=== PATIENT | female | born 1965 | race Caucasian/White ===

== ENCOUNTER 2024-09-22 07:50 | Inpatient (IN) ==
[2024-09-22] MEDS: methylPREDNISolone SOD SUCC 125 MG/2 ML VIAL IV ONE (08:41)
[2024-09-22 08:49] LABS: Basophils # (Auto) 0.03 K/mcL (0.00-0.30); Basophils % (Auto) 0.2 % (0.0-2.0); Eosinophils # (Auto) 1.21 K/mcL (0.00-0.70); Eosinophils % (Auto) 7.9 % (0.0-7.0); Hematocrit 40.8 % (34.1-44.9); Hemoglobin 12.9 g/dL (11.2-15.7); Lymphocytes % (Auto) 7.2 % (15.5-49.0); Mean Cell Volume 92.7 fL (80.0-100.0); Mean Corpuscular HGB Conc 31.6 g/dL (31.0-36.0); Mean Platelet Volume 10.1 fL (8.8-12.5); Monocytes # (Auto) 1.01 K/mcL (0.10-0.90); Monocytes % (Auto) 6.6 % (1.0-12.0); Neutrophils % (Auto) 77.8 % (38.0-78.0); Platelet Count 361 K/mcL (140-440); Red Cell Distribution Width 13.1 % (11.5-14.5); WBC 15.3 K/mcL (4.5-11.0)
[2024-09-22] MEDS: IPRATROPIUM/ALBUTEROL 3 ML AMPUL.NEB NEB ONE (09:05)
[2024-09-22 09:13] LABS: ALT/SGPT 39 U/L (<40); AST/SGOT 40 U/L (<32); Albumin 3.9 gm/dL (3.2-5.2); Albumin/Globulin Ratio 1.2 (1.0-2.3); Alkaline Phosphatase 169 U/L (39-117); Bilirubin,Total 0.5 mg/dL (0.1-1.0); Blood Urea Nitrogen 9 mg/dL (6-20); Calcium 8.7 mg/dL (8.6-10.4); Carbon Dioxide 25 mmol/L (22-30); Chloride 99 mmol/L (96-108); Globulin 3.2 gm/dL (2.2-3.7); Glomerular Filtration Rate 99; Glucose 120 mg/dL (70-105); Potassium 3.4 mmol/L (3.3-5.1); Sodium 138 mmol/L (133-145)
[2024-09-22] MEDS: KETOROLAC 15 MG/ML VIAL IV ONE (10:50)
[2024-09-22] MEDS: LEVOFLOXACIN 750 MG/150 ML BAG IV ONE (11:38)
[2024-09-22] MEDS ORDERED: ONDANSETRON 4 MG/2 ML VIAL IV PRN (13:16)
[2024-09-22] MEDS ORDERED: traZODone HCL 50 MG TABLET PO PRN (13:16)
[2024-09-22] MEDS: 0.9 % SODIUM CHLORIDE 10 ML SYRINGE IV SCH (14:15)
[2024-09-22] MEDS: IPRATROPIUM/ALBUTEROL 3 ML AMPUL.NEB NEB SCH (14:50)
[2024-09-22] MEDS: POTASSIUM CHLORIDE 20 MEQ TABLET PO SCH (17:33)
[2024-09-22] MEDS: methylPREDNISolone SOD SUCC 40 MG/ML VIAL IV SCH (20:47)
[2024-09-22] MEDS: MYCOPHENOLATE 250 MG CAPSULE PO SCH (20:48)
[2024-09-22] MEDS: LOSARTAN 50 MG TABLET PO SCH (20:48)
[2024-09-22] MEDS: DOCUSATE SODIUM 100 MG CAPSULE PO SCH (20:48)
[2024-09-22] MEDS: SERTRALINE 100 MG TABLET PO SCH (20:48)
[2024-09-22] MEDS: ATORVASTATIN 20 MG TABLET PO SCH (20:49)
[2024-09-22] MEDS: SENNOSIDES 1 TABLET PO SCH (20:50)
[2024-09-22] MEDS ORDERED: AMITRIPTYLINE 25 MG TABLET PO PRN (21:00)
[2024-09-22] MEDS: ZOLPIDEM 5 MG TABLET PO PRN (23:20)
[2024-09-22] MEDS: guaiFENesin/DEXTROMETHORPHAN 5ML UD CUP PO PRN (23:37)
[2024-09-22] MEDS: ACETAMINOPHEN 325 MG TABLET PO PRN (23:38)
[2024-09-23 06:34] LABS: Basophils # (Auto) 0.01 K/mcL (0.00-0.30); Basophils % (Auto) 0.1 % (0.0-2.0); Eosinophils # (Auto) 0 K/mcL (0.00-0.70); Eosinophils % (Auto) 0 % (0.0-7.0); Hematocrit 37.7 % (34.1-44.9); Hemoglobin 11.8 g/dL (11.2-15.7); Lymphocytes # (Auto) 0.58 K/mcL (1.50-4.80); Lymphocytes % (Auto) 3.9 % (15.5-49.0); Mean Cell Volume 94.7 fL (80.0-100.0); Mean Corpuscular HGB Conc 31.3 g/dL (31.0-36.0); Mean Platelet Volume 9.9 fL (8.8-12.5); Monocytes # (Auto) 0.72 K/mcL (0.10-0.90); Monocytes % (Auto) 4.8 % (1.0-12.0); Neutrophils % (Auto) 90.9 % (38.0-78.0); Platelet Count 319 K/mcL (140-440); RBC 3.98 M/mcL (3.59-5.38); Red Cell Distribution Width 13.2 % (11.5-14.5)
[2024-09-23 06:44] LABS: ALT/SGPT 34 U/L (<40); AST/SGOT 27 U/L (<32); Albumin 3.7 gm/dL (3.2-5.2); Albumin/Globulin Ratio 1.3 (1.0-2.3); Alkaline Phosphatase 160 U/L (39-117); Bilirubin,Total 0.3 mg/dL (0.1-1.0); Blood Urea Nitrogen 9 mg/dL (6-20); Calcium 8.9 mg/dL (8.6-10.4); Carbon Dioxide 27 mmol/L (22-30); Chloride 101 mmol/L (96-108); Globulin 2.9 gm/dL (2.2-3.7); Glomerular Filtration Rate 99; Glucose 155 mg/dL (70-105); Potassium 4.5 mmol/L (3.3-5.1); Sodium 139 mmol/L (133-145)
[2024-09-23] MEDS: LEVOTHYROXINE 150 MCG TABLET PO SCH (07:20)
[2024-09-23] MEDS: PANTOPRAZOLE 40 MG TABLET PO SCH (07:20)
[2024-09-23] MEDS: ENOXAPARIN 40 MG/0.4 ML SYRINGE SQ SCH (09:55)
[2024-09-23] MEDS: amLODIPine 10 MG TABLET PO SCH (09:55)
[2024-09-23] MEDS: LEVOFLOXACIN 750 MG/150 ML BAG IV SCH (09:58)
[2024-09-24 07:08] LABS: Basophils # (Auto) 0.01 K/mcL (0.00-0.30); Basophils % (Auto) 0.1 % (0.0-2.0); Eosinophils # (Auto) 0.01 K/mcL (0.00-0.70); Eosinophils % (Auto) 0.1 % (0.0-7.0); Hematocrit 40.1 % (34.1-44.9); Hemoglobin 12.4 g/dL (11.2-15.7); Lymphocytes # (Auto) 0.74 K/mcL (1.50-4.80); Mean Cell Volume 94.8 fL (80.0-100.0); Mean Corpuscular HGB Conc 30.9 g/dL (31.0-36.0); Mean Platelet Volume 9.6 fL (8.8-12.5); Monocytes # (Auto) 1.03 K/mcL (0.10-0.90); Monocytes % (Auto) 6.9 % (1.0-12.0); Neutrophils % (Auto) 87.6 % (38.0-78.0); Platelet Count 361 K/mcL (140-440); RBC 4.23 M/mcL (3.59-5.38); Red Cell Distribution Width 13.3 % (11.5-14.5); WBC 14.9 K/mcL (4.5-11.0)
[2024-09-24 07:53] LABS: ALT/SGPT 50 U/L (<40); AST/SGOT 48 U/L (<32); Albumin 3.9 gm/dL (3.2-5.2); Albumin/Globulin Ratio 1.3 (1.0-2.3); Alkaline Phosphatase 189 U/L (39-117); Bilirubin,Total 0.3 mg/dL (0.1-1.0); Blood Urea Nitrogen 10 mg/dL (6-20); Calcium 9.1 mg/dL (8.6-10.4); Carbon Dioxide 26 mmol/L (22-30); Chloride 99 mmol/L (96-108); Globulin 3.1 gm/dL (2.2-3.7); Glomerular Filtration Rate 99; Glucose 128 mg/dL (70-105); Potassium 4.5 mmol/L (3.3-5.1); Sodium 138 mmol/L (133-145)
[2024-09-24] MEDS: LOPERAMIDE 2 MG CAPSULE PO PRN (10:42)
[2024-09-24] MEDS: FUROSEMIDE 20 MG/2 ML VIAL IV SCH (10:42)
[2024-09-24] MEDS ORDERED: SENNOSIDES 1 TABLET PO PRN (13:31)
[2024-09-24] MEDS ORDERED: DOCUSATE SODIUM 100 MG CAPSULE PO PRN (13:31)
[2024-09-24] MEDS: LIDOCAINE 5 GM CREAM.TOP TOPICAL SCH (17:56)
[2024-09-24] MEDS: LACTOBACILLUS 1 CAPSULE PO SCH (21:41)
[2024-09-25 06:04] LABS: Basophils # (Auto) 0.01 K/mcL (0.00-0.30); Basophils % (Auto) 0.1 % (0.0-2.0); Eosinophils # (Auto) 0 K/mcL (0.00-0.70); Eosinophils % (Auto) 0 % (0.0-7.0); Hematocrit 39.4 % (34.1-44.9); Hemoglobin 12.1 g/dL (11.2-15.7); Lymphocytes # (Auto) 0.39 K/mcL (1.50-4.80); Lymphocytes % (Auto) 2.9 % (15.5-49.0); Mean Cell Volume 94.7 fL (80.0-100.0); Mean Corpuscular HGB Conc 30.7 g/dL (31.0-36.0); Mean Platelet Volume 9.8 fL (8.8-12.5); Monocytes # (Auto) 0.48 K/mcL (0.10-0.90); Monocytes % (Auto) 3.6 % (1.0-12.0); Neutrophils % (Auto) 93.1 % (38.0-78.0); Platelet Count 326 K/mcL (140-440); RBC 4.16 M/mcL (3.59-5.38); Red Cell Distribution Width 13.2 % (11.5-14.5); WBC 13.4 K/mcL (4.5-11.0)
[2024-09-25 06:53] LABS: ALT/SGPT 45 U/L (<40); AST/SGOT 25 U/L (<32); Albumin 3.5 gm/dL (3.2-5.2); Alkaline Phosphatase 183 U/L (39-117); Bilirubin,Total 0.3 mg/dL (0.1-1.0); Blood Urea Nitrogen 10 mg/dL (6-20); Calcium 9.2 mg/dL (8.6-10.4); Carbon Dioxide 28 mmol/L (22-30); Chloride 98 mmol/L (96-108); Globulin 3.4 gm/dL (2.2-3.7); Glomerular Filtration Rate 99; Glucose 186 mg/dL (70-105); Potassium 4.6 mmol/L (3.3-5.1); Sodium 138 mmol/L (133-145)
[2024-09-25] MEDS: FUROSEMIDE 20 MG/2 ML VIAL IV ONE (10:53)
[2024-09-26 06:19] LABS: Basophils # (Auto) 0.01 K/mcL (0.00-0.30); Basophils % (Auto) 0.1 % (0.0-2.0); Eosinophils # (Auto) 0 K/mcL (0.00-0.70); Eosinophils % (Auto) 0 % (0.0-7.0); Hematocrit 38.9 % (34.1-44.9); Hemoglobin 12.1 g/dL (11.2-15.7); Lymphocytes # (Auto) 0.58 K/mcL (1.50-4.80); Lymphocytes % (Auto) 4.1 % (15.5-49.0); Mean Cell Volume 94.6 fL (80.0-100.0); Mean Corpuscular HGB Conc 31.1 g/dL (31.0-36.0); Monocytes # (Auto) 0.76 K/mcL (0.10-0.90); Monocytes % (Auto) 5.4 % (1.0-12.0); Neutrophils % (Auto) 90.1 % (38.0-78.0); Platelet Count 380 K/mcL (140-440); RBC 4.11 M/mcL (3.59-5.38); Red Cell Distribution Width 13.1 % (11.5-14.5)
[2024-09-26 07:04] LABS: ALT/SGPT 44 U/L (<40); AST/SGOT 25 U/L (<32); Albumin 3.5 gm/dL (3.2-5.2); Alkaline Phosphatase 183 U/L (39-117); Bilirubin,Total 0.3 mg/dL (0.1-1.0); Blood Urea Nitrogen 16 mg/dL (6-20); Calcium 9.3 mg/dL (8.6-10.4); Carbon Dioxide 27 mmol/L (22-30); Chloride 98 mmol/L (96-108); Globulin 3.5 gm/dL (2.2-3.7); Glomerular Filtration Rate 99; Glucose 171 mg/dL (70-105); Potassium 4.7 mmol/L (3.3-5.1); Sodium 139 mmol/L (133-145)
[2024-09-26] MEDS: FLUTICASONE PROPIONATE SPRAY.NAS NS SCH (10:51)
[2024-09-26] MEDS: MEROPENEM 0.5 GM in 0.9 % SODIUM CHLORIDE 50 ML IV SCH (12:31)
[2024-09-26] MEDS: BUDESONIDE 0.5 MG/2 ML AMPUL.NEB NEB SCH (13:47)
[2024-09-26] MEDS: IPRATROPIUM/ALBUTEROL 3 ML AMPUL.NEB NEB SCH (19:11)
[2024-09-27 06:42] LABS: ALT/SGPT 40 U/L (<40); AST/SGOT 21 U/L (<32); Albumin 3.5 gm/dL (3.2-5.2); Alkaline Phosphatase 172 U/L (39-117); Bilirubin,Direct < 0.2 mg/dL (0-0.3); Bilirubin,Total 0.3 mg/dL (0.1-1.0); Blood Urea Nitrogen 15 mg/dL (6-20); Calcium 8.9 mg/dL (8.6-10.4); Carbon Dioxide 29 mmol/L (22-30); Chloride 97 mmol/L (96-108); Globulin 3.4 gm/dL (2.2-3.7); Glomerular Filtration Rate 105; Glucose 135 mg/dL (70-105); Lactate Dehydrogenase 365 U/L (135-225); Potassium 4.5 mmol/L (3.3-5.1); Sodium 137 mmol/L (133-145); Triglycerides 101 mg/dL (<150); Uric Acid 2.4 mg/dL (2.5-8.0)
[2024-09-27 06:46] LABS: Basophils # (Auto) 0.01 K/mcL (0.00-0.30); Basophils % (Auto) 0.1 % (0.0-2.0); Eosinophils # (Auto) 0.01 K/mcL (0.00-0.70); Eosinophils % (Auto) 0.1 % (0.0-7.0); Hematocrit 40.3 % (34.1-44.9); Hemoglobin 12.6 g/dL (11.2-15.7); Lymphocytes # (Auto) 0.74 K/mcL (1.50-4.80); Lymphocytes % (Auto) 5.9 % (15.5-49.0); Mean Cell Volume 93.3 fL (80.0-100.0); Mean Corpuscular HGB Conc 31.3 g/dL (31.0-36.0); Monocytes # (Auto) 0.81 K/mcL (0.10-0.90); Monocytes % (Auto) 6.5 % (1.0-12.0); Neutrophils % (Auto) 86.9 % (38.0-78.0); Platelet Count 401 K/mcL (140-440); RBC 4.32 M/mcL (3.59-5.38); Red Cell Distribution Width 12.9 % (11.5-14.5); WBC 12.5 K/mcL (4.5-11.0)
[2024-09-27] MEDS: FUROSEMIDE 100 MG/10 ML VIAL IV ONE (08:11)
[2024-09-27] MEDS: predniSONE 20 MG TABLET PO SCH (09:01)
[2024-09-27] MEDS: FUROSEMIDE 40 MG/4 ML VIAL IV ONE (15:16)
[2024-09-27] MEDS: IPRATROPIUM/ALBUTEROL 3 ML AMPUL.NEB NEB PRN (19:14)
[2024-09-27 20:04] LABS: C-Reactive Protein 8.45 mg/dL (0.03-0.80)
[2024-09-27] MEDS: ENOXAPARIN 40 MG/0.4 ML SYRINGE SQ SCH (21:11)
[2024-09-28 06:35] LABS: Basophils # (Auto) 0.01 K/mcL (0.00-0.30); Basophils % (Auto) 0.1 % (0.0-2.0); Eosinophils # (Auto) 0.01 K/mcL (0.00-0.70); Eosinophils % (Auto) 0.1 % (0.0-7.0); Hematocrit 42.3 % (34.1-44.9); Hemoglobin 13.1 g/dL (11.2-15.7); Lymphocytes # (Auto) 0.85 K/mcL (1.50-4.80); Lymphocytes % (Auto) 6.1 % (15.5-49.0); Mean Platelet Volume 9.8 fL (8.8-12.5); Monocytes # (Auto) 0.76 K/mcL (0.10-0.90); Monocytes % (Auto) 5.5 % (1.0-12.0); Neutrophils % (Auto) 87.6 % (38.0-78.0); Platelet Count 414 K/mcL (140-440); RBC 4.55 M/mcL (3.59-5.38); Red Cell Distribution Width 12.9 % (11.5-14.5); WBC 13.9 K/mcL (4.5-11.0)
[2024-09-28 06:51] LABS: ALT/SGPT 36 U/L (<40); AST/SGOT 19 U/L (<32); Albumin 3.4 gm/dL (3.2-5.2); Albumin/Globulin Ratio 0.9 (1.0-2.3); Alkaline Phosphatase 165 U/L (39-117); Bilirubin,Direct < 0.2 mg/dL (0-0.3); Bilirubin,Total 0.3 mg/dL (0.1-1.0); Blood Urea Nitrogen 22 mg/dL (6-20); C-Reactive Protein 6.94 mg/dL (0.03-0.80); Calcium 9.1 mg/dL (8.6-10.4); Carbon Dioxide 28 mmol/L (22-30); Chloride 96 mmol/L (96-108); Globulin 3.6 gm/dL (2.2-3.7); Glomerular Filtration Rate 99; Glucose 135 mg/dL (70-105); Lactate Dehydrogenase 339 U/L (135-225); Phosphorous 3.9 mg/dL (2.5-4.5); Potassium 4.3 mmol/L (3.3-5.1); Sodium 136 mmol/L (133-145); Triglycerides 132 mg/dL (<150); Uric Acid 3.2 mg/dL (2.5-8.0)
[2024-09-28 08:31] LABS: Lymphocytes % 11 % (15-49); Monocytes % (Manual) 4 % (1-12); Platelet Estimate NORMAL (Normal); RBC Morphology NORMAL (Normal); Segmented Neutrophils % 85 % (38-78)
[2024-09-28] MEDS: guaiFENesin 600 MG TAB.SR.12H PO SCH (08:52)
[2024-09-28] MEDS: FUROSEMIDE 100 MG/10 ML VIAL IV SCH (10:00)
[2024-09-28] MEDS: LORazepam 1 MG TABLET PO PRN (20:21)
[2024-09-29 05:57] LABS: Basophils # (Auto) 0.01 K/mcL (0.00-0.30); Basophils % (Auto) 0.1 % (0.0-2.0); Eosinophils # (Auto) 0.01 K/mcL (0.00-0.70); Eosinophils % (Auto) 0.1 % (0.0-7.0); Hematocrit 42.8 % (34.1-44.9); Hemoglobin 13.4 g/dL (11.2-15.7); Lymphocytes # (Auto) 0.85 K/mcL (1.50-4.80); Lymphocytes % (Auto) 5.3 % (15.5-49.0); Mean Cell Volume 92.6 fL (80.0-100.0); Mean Corpuscular HGB Conc 31.3 g/dL (31.0-36.0); Mean Platelet Volume 9.8 fL (8.8-12.5); Monocytes # (Auto) 0.63 K/mcL (0.10-0.90); Monocytes % (Auto) 3.9 % (1.0-12.0); Neutrophils % (Auto) 89.9 % (38.0-78.0); Platelet Count 461 K/mcL (140-440); RBC 4.62 M/mcL (3.59-5.38); WBC 16.1 K/mcL (4.5-11.0)
[2024-09-29 06:43] LABS: ALT/SGPT 35 U/L (<40); AST/SGOT 23 U/L (<32); Albumin 3.5 gm/dL (3.2-5.2); Albumin/Globulin Ratio 1.1 (1.0-2.3); Alkaline Phosphatase 166 U/L (39-117); Bilirubin,Direct < 0.2 mg/dL (0-0.3); Bilirubin,Total 0.3 mg/dL (0.1-1.0); Blood Urea Nitrogen 26 mg/dL (6-20); C-Reactive Protein 4.44 mg/dL (0.03-0.80); Calcium 8.7 mg/dL (8.6-10.4); Carbon Dioxide 29 mmol/L (22-30); Chloride 96 mmol/L (96-108); Globulin 3.3 gm/dL (2.2-3.7); Glomerular Filtration Rate 94; Glucose 151 mg/dL (70-105); Lactate Dehydrogenase 331 U/L (135-225); Phosphorous 3.8 mg/dL (2.5-4.5); Potassium 4.6 mmol/L (3.3-5.1); Sodium 137 mmol/L (133-145); Triglycerides 111 mg/dL (<150); Uric Acid 3.1 mg/dL (2.5-8.0)
[2024-09-29 08:44] LABS: Lymphocytes % 3 % (15-49); Platelet Estimate NORMAL (Normal); RBC Morphology NORMAL (Normal); Segmented Neutrophils % 97 % (38-78)
[2024-09-29] MEDS: AZITHROMYCIN 250 MG TABLET PO SCH (09:01)
[2024-09-29] MEDS: cefTRIAXone 2 GM in DEXTROSE 5% IN WATER 50 ML IV SCH (11:01)
[2024-09-30 05:47] LABS: Basophils # (Auto) 0.01 K/mcL (0.00-0.30); Basophils % (Auto) 0.1 % (0.0-2.0); Eosinophils # (Auto) 0.01 K/mcL (0.00-0.70); Eosinophils % (Auto) 0.1 % (0.0-7.0); Hematocrit 41.5 % (34.1-44.9); Lymphocytes # (Auto) 0.81 K/mcL (1.50-4.80); Mean Cell Volume 94.1 fL (80.0-100.0); Mean Corpuscular HGB Conc 31.3 g/dL (31.0-36.0); Mean Platelet Volume 10.8 fL (8.8-12.5); Monocytes # (Auto) 0.62 K/mcL (0.10-0.90); Monocytes % (Auto) 3.8 % (1.0-12.0); Neutrophils % (Auto) 89.9 % (38.0-78.0); Platelet Count 364 K/mcL (140-440); RBC 4.41 M/mcL (3.59-5.38); WBC 16.1 K/mcL (4.5-11.0)
[2024-09-30 06:07] LABS: ALT/SGPT 31 U/L (<40); AST/SGOT 17 U/L (<32); Albumin 3.2 gm/dL (3.2-5.2); Alkaline Phosphatase 147 U/L (39-117); Bilirubin,Direct < 0.2 mg/dL (0-0.3); Bilirubin,Total 0.3 mg/dL (0.1-1.0); Blood Urea Nitrogen 23 mg/dL (6-20); Calcium 8.8 mg/dL (8.6-10.4); Carbon Dioxide 25 mmol/L (22-30); Chloride 98 mmol/L (96-108); Globulin 3.3 gm/dL (2.2-3.7); Glomerular Filtration Rate 99; Glucose 150 mg/dL (70-105); Lactate Dehydrogenase 337 U/L (135-225); Phosphorous 3.5 mg/dL (2.5-4.5); Potassium 4.4 mmol/L (3.3-5.1); Sodium 136 mmol/L (133-145); Triglycerides 109 mg/dL (<150); Uric Acid 2.9 mg/dL (2.5-8.0)
[2024-09-30] MEDS: FUROSEMIDE 40 MG/4 ML VIAL IV ONE (09:16)
[2024-10-01 06:10] LABS: Basophils # (Auto) 0.01 K/mcL (0.00-0.30); Basophils % (Auto) 0.1 % (0.0-2.0); Eosinophils # (Auto) 0.55 K/mcL (0.00-0.70); Eosinophils % (Auto) 3.6 % (0.0-7.0); Hematocrit 40.3 % (34.1-44.9); Hemoglobin 12.4 g/dL (11.2-15.7); Lymphocytes # (Auto) 1.79 K/mcL (1.50-4.80); Lymphocytes % (Auto) 11.8 % (15.5-49.0); Mean Cell Volume 94.2 fL (80.0-100.0); Mean Corpuscular HGB Conc 30.8 g/dL (31.0-36.0); Mean Platelet Volume 9.9 fL (8.8-12.5); Monocytes # (Auto) 1.15 K/mcL (0.10-0.90); Monocytes % (Auto) 7.6 % (1.0-12.0); Neutrophils % (Auto) 75.6 % (38.0-78.0); Platelet Count 408 K/mcL (140-440); RBC 4.28 M/mcL (3.59-5.38); Red Cell Distribution Width 13.2 % (11.5-14.5); WBC 15.2 K/mcL (4.5-11.0)
[2024-10-01 06:24] LABS: Erythrocyte Sedimentation Rate 40 mm/hr (0-30)
[2024-10-01 06:49] LABS: C-Reactive Protein 2.95 mg/dL (0.03-0.80)
[2024-10-01 06:50] LABS: ALT/SGPT 27 U/L (<40); AST/SGOT 15 U/L (<32); Albumin 3.1 gm/dL (3.2-5.2); Alkaline Phosphatase 134 U/L (39-117); Bilirubin,Direct < 0.2 mg/dL (0-0.3); Bilirubin,Total 0.3 mg/dL (0.1-1.0); Blood Urea Nitrogen 26 mg/dL (6-20); Calcium 8.6 mg/dL (8.6-10.4); Carbon Dioxide 27 mmol/L (22-30); Chloride 96 mmol/L (96-108); Glomerular Filtration Rate 99; Glucose 124 mg/dL (70-105); Lactate Dehydrogenase 306 U/L (135-225); Phosphorous 3.1 mg/dL (2.5-4.5); Potassium 3.5 mmol/L (3.3-5.1); Sodium 137 mmol/L (133-145); Triglycerides 125 mg/dL (<150); Uric Acid 3.4 mg/dL (2.5-8.0)
[2024-10-01] MEDS: predniSONE 20 MG TABLET PO SCH (07:45)
[2024-10-02 06:08] LABS: Basophils # (Auto) 0.01 K/mcL (0.00-0.30); Basophils % (Auto) 0.1 % (0.0-2.0); Eosinophils % (Auto) 7.5 % (0.0-7.0); Hematocrit 38.3 % (34.1-44.9); Hemoglobin 11.9 g/dL (11.2-15.7); Lymphocytes % (Auto) 9.5 % (15.5-49.0); Mean Cell Volume 92.7 fL (80.0-100.0); Mean Corpuscular HGB Conc 31.1 g/dL (31.0-36.0); Mean Platelet Volume 9.9 fL (8.8-12.5); Monocytes # (Auto) 1.03 K/mcL (0.10-0.90); Neutrophils % (Auto) 73.8 % (38.0-78.0); Platelet Count 395 K/mcL (140-440); RBC 4.13 M/mcL (3.59-5.38); WBC 14.7 K/mcL (4.5-11.0)
[2024-10-02 06:53] LABS: ALT/SGPT 25 U/L (<40); AST/SGOT 16 U/L (<32); Albumin 3.1 gm/dL (3.2-5.2); Albumin/Globulin Ratio 1.1 (1.0-2.3); Alkaline Phosphatase 127 U/L (39-117); Bilirubin,Direct < 0.2 mg/dL (0-0.3); Bilirubin,Total 0.3 mg/dL (0.1-1.0); Blood Urea Nitrogen 20 mg/dL (6-20); Calcium 8.5 mg/dL (8.6-10.4); Carbon Dioxide 27 mmol/L (22-30); Chloride 98 mmol/L (96-108); Globulin 2.9 gm/dL (2.2-3.7); Glomerular Filtration Rate 105; Glucose 117 mg/dL (70-105); Lactate Dehydrogenase 315 U/L (135-225); Phosphorous 2.8 mg/dL (2.5-4.5); Potassium 3.6 mmol/L (3.3-5.1); Sodium 135 mmol/L (133-145); Triglycerides 113 mg/dL (<150); Uric Acid 3.2 mg/dL (2.5-8.0)
[2024-10-02 14:07] VITALS: TEMP 97.5; O2SAT 92
== END 2024-10-02 14:46 | DRG 189 ==
LOC: ED 07:50 → MEDSUR 13:00 → ICU 09-26 11:34
PROVIDERS: ADMIT Internal Medicine; ATTEND Internal Medicine